=== PATIENT | female | born 1950 | race Caucasian/White ===

== ENCOUNTER → 2018-05-24 | Day surgery (SDC) | payer OTHER ==
[~2018-05-24] VITALS: Ht 167.6 cm; Wt 63.0 kg
--- NOTE | 2018-05-24 11:49 | Operative Report ---
Operative/Inv Procedure Report Surgery Date: 05/24/18 Name of Procedure: Descemet's membrane endothelial keratoplasty right eye Pre-Operative Diagnosis: Fuchs corneal dystrophy and Corneal edema right eye Post-Operative Diagnosis: Same Estimated Blood Loss: none Surgeon/Food Mixer: Tho SANTIAGO,Alan Manley Anesthesia: block Complications: None Operative/Procedure Note Note: The risks, benefits, and alternatives to surgery were discussed at length with the patient. Informed consent was obtained. The patient was brought to the operating room where they were placed under sedation and a retrobulbar block was achieved to the right eye without complication. The right eye was prepped and draped in a normal sterile fashion. Speculum was placed with good exposure. Paracenteses were made with a stab incision blade. The anterior chamber was filled with viscoelastic. A 2.4 mm clear corneal incision was made using keratome blade. An approximately 8.25 diameter central area of Descemet's membrane was stripped and removed. An inferior paracentesis was made using reverse Sinskey hook and cyclodialysis spatula and enlarged using intraocular scissors. A temporary suture was placed in the main incision using 10-0 nylon. Attention was turned to the preloaded DMEK graft. The preloaded cartridge was removed from the sterile container. The caps were removed under balanced salt solution and the cartridge attached to a 3 mL syringe using 14 [place] tubing. Attention was turned back to the patient and viscoelastic was evacuated from the anterior chamber using coaxial irrigation and aspiration. Intracameral Miochol was instilled. The temporary suture was loosened and the graft was injected into the anterior chamber without incident. The suture was tightened. With a shallow chamber and a series of taps to the cornea the graft was unfolded and found to be in proper orientation based on the "S" stamp. The graft was locked in position using a complete air fill of the anterior chamber using SF6 gas. The eye was filled to superphysiologic pressure for approximately 2 minutes with a complete air fill. The eye was brought to physiologic pressure with a complete air fill for an additional 8 minutes. Some conjunctival injections of cefuroxime and dexamethasone were placed. Dilating drops were placed on the eye. Speculum was removed and the patient was brought to the recovery area where they lay for an additional 1 hour without incident. Instructions were given to the patient to follow-up the next day for routine postoperative care.
== END ==
LOC: STS 04-26 07:00
DX: H18.51 Endothelial corneal dystrophy (principal); H18.20 Unspecified corneal edema; E07.9 Disorder of thyroid, unspecified; J45.909 Unspecified asthma, uncomplicated
CPT/HCPCS: 87070; 87075; J2001; J2250; V2785